=== PATIENT | female | born 1945 | race Caucasian/White ===

== ENCOUNTER 2018-12-29 16:27 | Emergency (ER) | payer MEDICARE, SELFPAY ==
[2018-12-29] VITALS (10 sets, daily range): BP systolic 142–208; BP diastolic 67–127; PULSE 64–116; RESP 10–23; TEMP 36.8; O2SAT 94–97; BMI 45.8; BMI 24.0
--- NOTE | 2018-12-29 16:32 | NURSING ---
[address] [employer] CALLED
[2018-12-29 16:35] LABS: Bedside Glucose 107 mg/dL (70-110)
--- NOTE | 2018-12-29 16:47 | CT_ITS ---
STUDY: CT BRAIN WITHOUT CONTRAST REASON FOR EXAM: Female, 73 years old. Left arm weakness/numbness, facial droop RADIATION DOSAGE (If Supplied By Facility): CTDIvol = ( 44.99 ) mGy, DLP = ( 779.24 ) mGycm TECHNIQUE: Transaxial CT imaging of the brain was performed without administration of intravenous contrast material. Individualized dose optimization techniques were used for this CT. COMPARISON: No relevant priors. FINDINGS: Normal soft tissue structures. Normal calvarium. Normal size ventricles and extra-axial spaces for the patient's age. Normal white matter tracts of the cerebral hemispheres. Normal basal ganglia and thalami. Normal brainstem. Normal cerebellum. There is no intracranial hemorrhage. There are no findings of an acute ischemic infarction. There is a large polypoid filling defect of the left maxillary sinus consistent with a mucoid retention cyst. CT/Brain/Head without Contrast IMPRESSION: Large polypoid filling defect of the left maxillary sinus consistent with a mucoid retention cyst. There is no intracranial hemorrhage or evidence of acute infarct. If clinically indicated, CTA brain and/or MRI may be helpful for further evaluation at this time. Electronically Signed: Homero Jack MD at 17:24 EDT , Service support ,
--- NOTE | 2018-12-29 16:47 | EKG12_ITS ---
Test Reason : NEURO Blood Pressure : / mmHG Vent. Rate : 069 BPM Atrial Rate : 069 BPM P-R Int : 152 ms QRS Dur : 086 ms QT Int : 392 ms P-R-T Axes : 060 -21 056 degrees QTc Int : 420 ms Normal sinus rhythm Septal infarct , age undetermined Abnormal ECG Confirmed by CADE LARES, CEDRICK ([id number]), editor in chief newspaper ANSON SCHMITT ([id number]) on 01/04/2019 1:08:34 PM Referred By: PAGE Confirmed By:CEDRICK MOHAMUD MD
--- NOTE | 2018-12-29 16:50 | ED.DCSUM_ITS ---
- ER Visit Summary Date of Service: 12/29/18 Chief Complaint: Possible stroke History of Present Illness: The patient is a 73 M who presents with paresthesias in her left hand that radiated up to her forearm. Patient states these began approximately 15 minutes prior to arrival but have since resolved. Patient states her family also noted some left facial weakness and some slurring of her speech. Patient states her speech is back to normal. Family is agreeable with this. Patient still has some slight weakness of her left face. Patient denies any headaches. Patient denies any nausea or vomiting. Patient denies any chest pain or shortness of breath. Physical Examination: Vital signs are stable except for an elevated blood pressure. Patient is afebrile. Patient is in no acute distress. Cranial nerves II through XII are intact except for slight weakness of her left lower face with smiling. Sensation was intact light touch. There are no visual deficits noted. Strength is 5/5 bilaterally in the upper and lower extremities. There is no pronator drift. Heart was regular rate and rhythm. Lungs are clear and equal bilaterally. Abdomen is soft. Bowel sounds are normal. There is no tenderness. Test Results: CT scan of the brain was obtained. There is no acute hemorrhage or infarct. There is a mucoid cyst of the left maxillary sinus. EKG showed normal sinus rhythm with a rate of 69. There are no acute ST or T wave changes. There are no prior EKGs available for comparison. CBC and basic metabolic profile were essentially within normal limits. Troponin was normal. Emergency Department Course and Treatment: Patient had an initial NIH of 1 for slight left facial weakness. This improved on reevaluation. Patient was instructed to follow-up with her primary care physician when she gets home to [place]. Patient and family understood and were agreeable with the plan. All questions were answered. Disposition: Discharge home Impression: 1. TIA This note was generated with [employer] software. It may contain incorrect words, spelling, and punctuation that were not noted in review of the chart prior to signing ED Disposition - Plan for ED Patient: Disposition: Home or Assisted Living Diagnosis: TIA (transient ischemic attack) Instructions: T.I.A.: Transient Ischemic Attack Referrals: Care Physician,No Primary [Primary Care Provider] - 3-5 Days
--- NOTE | 2018-12-29 16:57 | RAD_ITS ---
STUDY: X-RAY CHEST REASON FOR EXAM: Female, 73 years old. CVA. Slurred speech and facial droop. TECHNIQUE: Single frontal view of the chest. COMPARISON: None. FINDINGS: Marked hyperexpansion with bullous disease compatible with COPD. There is no demonstrated pleural abnormality. Borderline cardiomegaly. Normal mediastinum and wilson. Normal visualized pulmonary arteries. Aortic tortuosity with calcification. Normal visualized thoracic spine. Normal visualized ribs, clavicles, and shoulders. There is no demonstrated abnormality of the visualized soft tissue structures of the upper abdomen. RAD/Chest 1 View IMPRESSION: Borderline cardiomegaly with COPD. No acute abnormality. Electronically Signed: Yogi Colvin MD at 17:17 EDT , Service support ,
--- NOTE | 2018-12-29 17:08 | NURSING ---
NO OLD EKGS
[2018-12-29 17:13] LABS: International Normalized Ratio 1.1; Prothrombin Time (Protime)PT. 14.3 SECONDS (11.7-14.9)
[2018-12-29 17:14] LABS: Partial Thromboplast Time 38.3 Seconds (24.1-36.2)
[2018-12-29 17:21] LABS: Anion Gap 3 (5-15); BUN 17 mg/dL (7-18); BUN/Creat Ratio 22.3 RATIO (10-20); Calcium,Total 9.2 mg/dL (8.5-10.1); Chloride 103 mmol/L (98-107); Creatinine, Serum 0.76 mg/dL (0.55-1.02); EST Glomerular Filtration Rate 106 mL/min (>60); Est Glom Filt Rate - Afr Amer 128 mL/min (>60); Estimated Creatinine Clearance 43.74 ml/min; Glucose 108 mg/dL (74-106); Potassium 3.6 mmol/L (3.5-5.1); Sodium Level 136 mmol/L (136-145)
[2018-12-29 17:32] LABS: Absolute Lymphocyte Count 1.68 X10^3/uL (0.83-4.51); Absolute Neutrophil Count 2.8 X10^3/uL (2.0-7.7); Basophil# 0.06 X10^3/uL; Basophil% 1.1 % (0-1); Eosinophil# 0.07 X10^3/uL; Eosinophils% 1.3 % (0-5); Hematocrit 40.1 % (37-47); Hemoglobin 12.8 g/dL (12.0-15.0); Lymphocyte # 1.68 X10^3/ul (4.0); Lymphocyte % 31.3 % (19-41); Mean Corp Hgb Conc 31.9 g/dL (32-36); Mean Corpuscular Hgb 34.6 pg (27.0-32.0); Mean Corpuscular Volume 108.4 fL (81-99); Mean Platelet Vol. 12.7 fl (6.2-12.0); Monocyte# 0.79 X10^3/uL; Monocyte% 14.7 % (0-10); NRBC Flagged by Analyzer 0 % (0-5); Neutrophil # 2.76 X10^3/uL (2.7-7.7); Neutrophil % 51.6 % (47-70); Platelet Count 218 K/mm3 (150-450); RBC Distribution Width CV 11.9 % (11.6-14.6); RBC Distribution Width SD 47.3 fl (35.1-43.9); White Blood Count 5.4 K/mm3 (4.4-11.0)
== END 2018-12-29 19:19 | disposition home or self-care (01) ==
PROVIDERS: Emergency Provider Emergency Medicine
DX: G45.9 Transient cerebral ischemic attack, unspecified (principal); R29.810 Facial weakness; R47.81 Slurred speech; E03.9 Hypothyroidism, unspecified; M06.9 Rheumatoid arthritis, unspecified; K50.90 Crohn's disease, unspecified, without complications; M19.90 Unspecified osteoarthritis, unspecified site; Z79.899 Other long term (current) drug therapy
CPT/HCPCS: 70450; 71045; 80048; 82962; 84484; 85025; 85610; 85730; 93005; 99283